=== PATIENT | female | born 1965 | race American Indian/Alaskan Native ===

== ENCOUNTER 2016-10-25 11:30 | Outpatient (CLI) | payer BC ==
--- NOTE | 2016-10-25 15:00 | Cat Scan Report ---
CT ABDOMEN AND PELVIS WITHOUT CONTRAST INDICATION: Neurogenic bladder. COMPARISON: None similar. FINDINGS: Noncontrast abdomen and pelvis CT performed. LUNG BASES: Minimal anterior pericardial thickening or fluid measuring 5 mm AP, axial series 2, image 4. Normal heart size. Nonspecific distal esophageal wall thickening, not excluded for gastroesophageal reflux and/or hiatal hernia, amongst others. ABDOMEN: Please note that sensitivity to detect small visceral lesions is limited due to the absence of intravenous or oral contrast. Tiny hepatic calcified granuloma. Approximately 4 x 3 cm right hepatic dome hypodense lesion measuring 40 HU posteriorly, axial image 12, series 2, amongst others, presumably a hemangioma. No radiopaque gallstones or renal calculi, though subtle increased corticomedullary junction echogenicities noted bilaterally. Approximately 6 mm right renal cortical hypodensity, axial image 24. Otherwise, grossly unremarkable unenhanced liver, spleen, gallbladder, pancreas, adrenals, nonaneurysmal abdominal aorta and IVC. No ascites or definite size significant adenopathy. Nonopacified GI tract evaluation limited, though grossly nonobstructive. Mild to moderate colonic stool/possible constipation. PELVIS: Grossly unremarkable unenhanced urinary bladder. Uterus somewhat deviated into the right hemipelvis. Rectosigmoid stool. No free fluid or significant adenopathy. No focal aggressive osseous lesions. CONCLUSION: 1. Right hepatic dome hypodense lesion posteriorly, incompletely characterized on this unenhanced exam. Further evaluation with liver mass protocol CT may be considered, if not already characterized elsewhere previously. 2. 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 Thank you for the opportunity to participate in this patient's care.
== END 2016-10-25 11:31 | disposition home or self-care (01) ==
LOC: CT 11:30
PROVIDERS: ATTEND Urology
DX: N31.0 Uninhibited neuropathic bladder, not elsewhere classified (principal); K75.3 Granulomatous hepatitis, not elsewhere classified
CPT/HCPCS: 74176